=== PATIENT | male | born 1950 | race Hispanic/Latino ===

== ENCOUNTER 2017-02-15 13:34 | Day surgery (SDC) | payer BC ==
[~2017-02-15 13:34] MED LIST: NACL 0.9% 1000 ML 1,000 ML IV SCH; PEPCID PO NR
--- NOTE | 2017-02-15 14:17 | Anesthesia Consultation ---
Anesthesia Consult and Med Hx Date of service: 02/15/17 - Airway Anesthetic Teeth Evaluation: Good ROM Head & Neck: Adequate Mental/Hyoid Distance: Adequate Mallampati Class: Class II Intubation Access Assessment: Probably Good - Pulmonary Exam CTA: Yes - Cardiac Exam Cardiac Exam: RRR - Pre-Operative Health Status ASA Pre-Surgery Classification: ASA2 Proposed Anesthetic Plan: General - Pre-Anesthesia Comment Pre-Anesthesia Comments: Bilateral hearing aids. right nephrectomy. No anesthesia complications. - Pulmonary Hx Smoking: Yes (QUIT 1979) - Other Systems Hx Cancer: Yes (bladder )
--- NOTE | 2017-02-15 14:17 | Anesthesia Day of Surgery ---
Anesthesia Day of Surgery - Day of Surgery Patient Examined: Yes Patient H&P Reviewed: Yes Patient is NPO: Yes
[2017-02-15] MEDS ORDERED: VERSED IV NR (15:00)
[2017-02-15 15:03] LABS: Anion Gap 16 mmol/L; BUN/Creatinine Ratio 15.83; Blood Urea Nitrogen 19 mg/dL (9-20); Carbon Dioxide 22 mmol/L (22-30); Chloride 103.9 mmol/L (98-107); Glucose 90 mg/dL (75-100); Potassium 4.3 mmol/L (3.6-5.0); Sodium 138 mmol/L (137-145)
[2017-02-15] MEDS ORDERED: DIPRIVAN 10 MG/ML IV ONE (15:12)
[2017-02-15] MEDS ORDERED: ZOFRAN ONE ×2 (15:12→16:09)
[2017-02-15] MEDS ORDERED: XYLOCAINE MPF 2% ONE (15:12)
[2017-02-15] MEDS ORDERED: SUBLIMAZE ONE (15:12)
[2017-02-15] MEDS ORDERED: OMNIPAQUE 300 MG/50 ML (CATH LAB) IV ONE (15:58)
[2017-02-15] MEDS ORDERED: ANCEF ONE ×2 (16:06)
[2017-02-15] MEDS ORDERED: TORADOL ONE (16:24)
--- NOTE | 2017-02-15 16:33 | Short Stay Summary ---
Short Stay Documentation Date of service: 02/15/17 - History H&P: obtained from office - Allergies and Medications Current Medications: Allergies No Known Allergies Allergy (Verified 02/01/16 06:25) Home Medications Medication Instructions Recorded Confirmed Last Taken Type Lipitor 10 mg PO DAILY 08/25/14 02/15/17 02/14/17 History Multivitamin Tab [Multiple Vitamin 1 each PO QDAY 01/19/16 02/15/17 02/14/17 History TAB (Theragran)] Ibuprofen [Motrin] 800 mg PO Q8HR PRN 02/09/17 02/15/17 02/10/17 History Active Medications Famotidine (Pepcid) 20 mg PO PREOP NR Stop: 02/15/17 23:59 Last Admin: 02/15/17 14:15 Dose: 20 mg Sodium Chloride (Nacl 0.9% 1000 Ml) 1,000 mls @ 75 mls/hr IV DIRECT ANITA Last Admin: 02/15/17 14:20 Dose: 75 mls/hr Midazolam HCl (Versed) 2 mg IV PREOP NR Stop: 02/15/17 23:59 Last Admin: 02/15/17 14:42 Dose: 2 mg - Brief post op/procedure progress note Date of procedure: 02/15/17 Pre-op diagnosis: BLADDER TUMORS Post-op diagnosis: same Procedure: CYSTO, LEFT RPG, TURBT X 3 Anesthesia: GETA Surgeon: ISACC EDGAR Estimated blood loss: minimal Pathology: list (BLADDER TUMOR-DOME, POSTERIOR, RT SIDE WALL) - Hospital course Hospital course: PT HAS ABX & PAIN PILL AT HOME - Disposition Condition at discharge: Stable Disposition: DC-01 TO HOME OR SELFCARE Short Stay Discharge Plan Follow up with: CARO BRUMFIELD MD [Primary Care Provider] - 7 Days
--- NOTE | 2017-02-15 16:58 | Post Anesthesia Evaluation ---
- Post Anesthesia Evaluation Patient Participated: Yes Airway Patent: Yes Stable Respiratory Function: Yes Nausea/Vomiting: No Temp > 96.8F: Yes Pain Manageable: Yes Adequeate Hydration: Yes Anesthesia Complications: No
[2017-02-15] MEDS ORDERED: DILAUDID IV PRN (17:19)
--- NOTE | 2017-02-15 19:36 | Operative Report ---
PREOPERATIVE DIAGNOSIS: Multiple bladder tumors. POSTOPERATIVE DIAGNOSIS: Multiple bladder tumors (total aggregate approximately 2 cm of tumor.) PROCEDURE: Cystoscopy, left retrograde pyelogram, transurethral resection of bladder tumors (posterior dome, right lateral wall). SURGEON: Alejandro De La Garza MD ANESTHESIA: General. ESTIMATED BLOOD LOSS: Minimal. FLUIDS: Crystalloid. COMPLICATIONS: No complications. INDICATIONS: This patient is a 66-year-old gentleman seen by Dr. Wolf in the office for superficial bladder tumors, had a previous resection. Surveillance cystoscopy revealed 3 tumors. He presents now for resection. Risks, benefits, and complications were explained. DESCRIPTION OF PROCEDURE: The patient was taken to the operative suite, placed in a supine position. After adequate general anesthesia, placed in a dorsal lithotomy position, prepped and draped in a sterile fashion. Pancystourethroscopy was performed with a 22 Danish Storz cystoscope, normal urethra and prostate. Bladder, no stones were noted, 3 papillary tumors could be appreciated. Left retrograde pyelogram was obtained with an 8 Danish Florence catheter and 8 mL of contrast. No filling defects or obstruction. I could not visualize the right side it had some mild trabeculation. Originally cold cup biopsy forceps was used to remove the dome tumor little smaller of the 3. However, the posterior wall, lateral wall was resected with a 24-Danish resectoscope with a cutting and coagulant at 160 and 60. Adequate hemostasis was achieved. This tumors were sent for routine pathologic evaluation. His bladder was drained. Rectal exam was benign. He was extubated and taken to recovery room in stable condition. JOB# [id number] [facility]
[2017-02-16 00:02] VITALS: BP 135/79
--- NOTE | 2017-02-16 08:56 | Fluoroscopy Report ---
FLUOROSCOPY RETROGRADE UROGRAPHY History: Bladder tumors. Findings: Fluoroscopy was provided by radiology during retrograde urography by Dr. De La Garza of urology. 4 fluoroscopic images were captured. Compared to 05/04/16 exam. Only the left pyelogram was performed which remains normal. The orifice to the right ureter could not be identified per the operative notes. Bladder TURP was performed with biopsies. Please correlate with the operative report. Impression: Normal left pyelogram.
== END 2017-02-15 19:15 | disposition home or self-care (01) ==
LOC: OR 13:34
PROVIDERS: ATTEND Urology
DX: C67.1 Malignant neoplasm of dome of bladder (principal); C67.2 Malignant neoplasm of lateral wall of bladder; C67.4 Malignant neoplasm of posterior wall of bladder; N32.89 Other specified disorders of bladder; Z90.5 Acquired absence of kidney; Z87.891 Personal history of nicotine dependence; Z98.890 Other specified postprocedural states
CPT/HCPCS: 36415; 52234; 74420; 80048; 88305; J0690; J1170; J1885; J2250; J2405; J2704; J3010; J7030; Q9967

== ENCOUNTER 2017-06-09 09:27 | Day surgery (SDC) | payer BC ==
[2017-06-09] MEDS ORDERED: NACL BACTERIOSTATIC INFILTRATI ONE (10:06)
[2017-06-09] MEDS ORDERED: NEO SYNEPHRINE/NS Syringe(OR USE) IV ONE (11:00)
[2017-06-09] MEDS ORDERED: LASIX ONE (11:00)
[2017-06-09] MEDS ORDERED: SUBLIMAZE ONE (11:07)
[2017-06-09] MEDS ORDERED: DIPRIVAN 10 MG/ML IV ONE (11:07)
[2017-06-09] MEDS ORDERED: ROBINUL ONE (11:08)
[2017-06-09] MEDS ORDERED: ZOFRAN ONE (11:08)
[2017-06-09] MEDS ORDERED: XYLOCAINE MPF 2% ONE (11:08)
[2017-06-09] MEDS ORDERED: DECADRON ONE (11:08)
--- NOTE | 2017-06-09 11:23 | Anesthesia Consultation ---
Anesthesia Consult and Med Hx Date of service: 06/09/17 - Airway Anesthetic Teeth Evaluation: Good ROM Head & Neck: Adequate Mental/Hyoid Distance: Inadequate Mallampati Class: Class II Intubation Access Assessment: Probably Good - Pulmonary Exam CTA: Yes - Cardiac Exam Cardiac Exam: RRR - Pre-Operative Health Status ASA Pre-Surgery Classification: ASA2 Proposed Anesthetic Plan: General - Pulmonary Hx Smoking: Yes (QUIT 1979- SMOKED X 5 YRS) Hx Sleep Apnea: No (NICOLÁS PRE SCREEN HIGH RISK) - Cardiovascular System Hx Hypertension: No - Central Nervous System Hx Neuromuscular Disorder: No Hx Back Pain: Yes (cervical and lumbar fusion, h/o ruptured disc) Hx Psychiatric Problems: No - Gastrointestinal Hx Gastroesophageal Reflux Disease: No - Endocrine Hx Renal Disease: No Hx Insulin Dependent Diabetes: No - Hematic Hx Anemia: No Hx Sickle Cell Disease: No - Other Systems Hx Alcohol Use: No Hx Substance Use: No Hx Cancer: Yes (bladder ) Hx Obesity: No
--- NOTE | 2017-06-09 11:23 | Anesthesia Day of Surgery ---
Anesthesia Day of Surgery - Day of Surgery Patient Examined: Yes Patient H&P Reviewed: Yes Patient is NPO: Yes
[2017-06-09] MEDS ORDERED: LACTATED RINGERS 1,000 ML IV SCH (11:25)
[2017-06-09] MEDS ORDERED: VERSED IV NR (11:25)
[2017-06-09] MEDS ORDERED: PEPCID PO NR (11:25)
[2017-06-09] MEDS ORDERED: OMNIPAQUE 300 MG/50 ML (CATH LAB) IV ONE (11:54)
[2017-06-09] MEDS ORDERED: WATER FOR IRRIG STERILE IR ONE ×2 (11:55)
[2017-06-09] MEDS ORDERED: ANCEF/STERILE WATER 2 GM/20 ML 2 GM/20 ML SYRINGE IV NR (12:00)
[2017-06-09] MEDS ORDERED: ePHEDrine SULFATE ONE (12:01)
[2017-06-09] MEDS ORDERED: METHYLENE BLUE ONE (12:13)
[2017-06-09] MEDS ORDERED: METHYLENE BLUE IV ONE (12:26)
[2017-06-09] MEDS: MORPHINE IV PRN ×2 (12:58→13:20)
[2017-06-09] MEDS ORDERED: NORCO 5/325 ONE (13:12)
[2017-06-09] MEDS ORDERED: NORCO 5/325 PO ONE (13:17)
--- NOTE | 2017-06-09 14:37 | Post Operative Note ---
Date of procedure: 06/09/17 Pre-op diagnosis: bladder casncer Post-op diagnosis: same Findings: min erytheme Procedure: cysto biopsies rpg L Anesthesia: GETA Surgeon: RADHA POZO Estimated blood loss: none Pathology: list (bladder yrethra) Specimen disposition: to lab Condition: stable Disposition: PACU
--- NOTE | 2017-06-09 14:39 | Discharge Summary ---
Short Stay Discharge Plan Activity: other (no straining ) Weight Bearing Status: Full Weight Bearing Diet: low fat, low cholesterol, low salt Special Instructions: other (inc fluids ) Durable Medical Equipment Needed Upon Discharge: other (remove del real ) Additional Instructions: INCREASE ORAL FLUIDS. Follow up with: CARO BRUMFIELD MD [Primary Care Provider] - 7 Days RADHA POZO MD [Staff Physician] - 14 Days Forms: Outpatient Surgery DC Inst.
[2017-06-09 14:40] VITALS: BP 147/95
--- NOTE | 2017-06-09 18:36 | Operative Report ---
PREOPERATIVE DIAGNOSES: History of bladder cancer, ureteral cancer. POSTOPERATIVE DIAGNOSES: History of bladder cancer, ureteral cancer. PROCEDURE: Cystoscopy, bladder biopsy, fulguration, and left retrograde. SURGEON: Jackson Wolf MD, ANESTHESIA: General. FINDINGS: This is a gentleman with right nephroureterectomy for a followup post-resection of bladder tumors, now presents for treatment. DESCRIPTION OF PROCEDURE: The patient brought to the operating room and placed on the operating table. Following induction of anesthesia, placed in lithotomy position, prepped and draped in usual sterile fashion. Cystourethroscopy showed old scars where the right orifice was. The left retrograde was unremarkable with good drainage, little narrowing by the bifurcation. Biopsies were done. Area was cauterized. The patient tolerated the procedure well. Prostatic urethra was biopsied. He has trilobar hypertrophy. The patient tolerated the procedure well. No significant complications, brought to recovery room in stable condition. JOB# [id number] [facility]
--- NOTE | 2017-06-12 07:27 | Fluoroscopy Report ---
FLUORO RETROGRADE UROGRAPHY INDICATION: Bladder cancer. Absent right kidney. COMPARISON: None similar. FINDINGS: Left retrograde urography performed by Dr. Wolf utilizing 6 mL of Omnipaque 300. Left retrograde pyelogram and biopsies of posterior and lateral bladder wall and prostatic urethra were performed. A total of 6 images submitted. Initial store operations specialist views demonstrate L3-L5 bilateral pedicle screws and fusion hardware, disc maintainers and bone grafting. Moderate L2-L3 degenerative disc narrowing and spurring also seen. Subsequent retrograde opacification of the left ureter and intrarenal collecting system noted. Approximately 1 cm long segment narrowing of the left distal ureter overlying the sacrum inferiorly on a single view nonspecific, presumed peristaltic rather than pathologic without evidence of hydronephrosis or any residual contrast on drainage images. Right retrograde pyelogram not performed due to absent right kidney. CONCLUSION: Intraoperative fluoroscopic assistance provided, as described. Please also correlate with procedural notes. Thank you for the opportunity to participate in this patient's care.
== END 2017-06-09 09:28 | disposition home or self-care (01) ==
LOC: OR 09:27
PROVIDERS: ATTEND Urology
DX: N30.80 Other cystitis without hematuria (principal); N32.89 Other specified disorders of bladder; Z85.51 Personal history of malignant neoplasm of bladder
CPT/HCPCS: 52204; 74420; 88305; A4217; C1758; J0690; J1100; J1940; J2250; J2270; J2370; J2405; J2704; J3010; J7120; Q9967; Q9968

== ENCOUNTER 2018-03-14 13:36 | Day surgery (SDC) | payer MEDICARE ==
[~2018-03-14 13:36] MED LIST changes: +DILAUDID IV PRN; -PEPCID PO NR; +VERSED IV NR; +ZOFRAN IV PRN
[2018-03-14 14:13] VITALS: BP 147/89
[2018-03-14] MEDS ORDERED: ANCEF/STERILE WATER 2 GM/20 ML 2 GM/20 ML SYRINGE IV NR (15:00)
--- NOTE | 2018-03-14 15:00 | Anesthesia Day of Surgery ---
Anesthesia Day of Surgery - Day of Surgery Patient Examined: Yes Patient H&P Reviewed: Yes Patient is NPO: Yes
--- NOTE | 2018-03-14 15:01 | Anesthesia Consultation ---
Anesthesia Consult and Med Hx Date of service: 03/14/18 - Airway Anesthetic Teeth Evaluation: Good ROM Head & Neck: Adequate Mental/Hyoid Distance: Adequate Mallampati Class: Class III Intubation Access Assessment: Possibly Difficult - Pulmonary Exam CTA: Yes - Cardiac Exam Cardiac Exam: RRR - Pre-Operative Health Status ASA Pre-Surgery Classification: ASA3 Proposed Anesthetic Plan: General (obesity, denies GERD, LMA ok) - Pulmonary Hx Smoking: Yes (QUIT 1979- SMOKED X 5 YRS) Hx Sleep Apnea: No (NICOLÁS PRE SCREEN HIGH RISK) - Cardiovascular System Hx Hypertension: No - Central Nervous System Hx Neuromuscular Disorder: No Hx Back Pain: Yes (NECK AND BACK PAIN ( FUSION)) Hx Psychiatric Problems: No - Gastrointestinal Hx Gastroesophageal Reflux Disease: No - Endocrine Hx Renal Disease: No Hx Insulin Dependent Diabetes: No - Hematic Hx Anemia: No Hx Sickle Cell Disease: No - Other Systems Hx Alcohol Use: No Hx Substance Use: No Hx Cancer: Yes (bladder ) Hx Obesity: No
[2018-03-14] MEDS ORDERED: SUBLIMAZE IV ONE (15:45)
[2018-03-14] MEDS ORDERED: AMBIEN PO PRN (17:32)
[2018-03-14] MEDS ORDERED: PERCOCET 5/325 PO PRN (17:32)
[2018-03-14] MEDS ORDERED: ZOFRAN ODT PO PRN (17:32)
[2018-03-14] MEDS ORDERED: TYLENOL PO PRN (17:32)
--- NOTE | 2018-03-14 17:32 | Post Operative Note ---
Date of procedure: 03/14/18 Pre-op diagnosis: bladder cancer Post-op diagnosis: same Findings: tumor at orifice Procedure: cysto turbt Anesthesia: GETA Surgeon: RADHA POZO Estimated blood loss: minimal Pathology: list (bt) Specimen disposition: to lab Condition: stable Disposition: PACU
[2018-03-14] MEDS ORDERED: DIPRIVAN 10 MG/ML IV ONE (17:39)
[2018-03-14] MEDS ORDERED: XYLOCAINE MPF 2% ONE (17:39)
[2018-03-14] MEDS ORDERED: D5W/0.45% NACL/KCL 20 MEQ 20 MEQ/1,000 ML BAG IV SCH (20:00)
[2018-03-14] MEDS ORDERED: ANCEF/NS 1 GM/50 ML 1 GM/50 ML BAG IV SCH (22:00)
[2018-03-14] MEDS ORDERED: COLACE PO SCH (22:00)
--- NOTE | 2018-03-15 07:24 | Post Anesthesia Evaluation ---
- Post Anesthesia Evaluation Patient Participated: Yes Airway Patent: Yes Stable Respiratory Function: Yes Nausea/Vomiting: No Temp > 96.8F: Yes Pain Manageable: Yes Adequeate Hydration: Yes Anesthesia Complications: No Block Receding Appropriately: Not Applicable Patient on Ventilator: No
== END 2018-03-14 19:20 | disposition home or self-care (01) ==
LOC: OR 13:36
PROVIDERS: ATTEND Urology
DX: C67.4 Malignant neoplasm of posterior wall of bladder (principal); E78.00 Pure hypercholesterolemia, unspecified; M19.90 Unspecified osteoarthritis, unspecified site; Z79.899 Other long term (current) drug therapy; Z90.5 Acquired absence of kidney; Z87.891 Personal history of nicotine dependence; Z92.21 Personal history of antineoplastic chemotherapy; Z98.890 Other specified postprocedural states; Z53.8 Procedure and treatment not carried out for other reasons
CPT/HCPCS: J0690; J2250; J2704; J3010; J7030

== ENCOUNTER 2018-07-16 08:01 | Day surgery (SDC) | payer MEDICARE ==
[2018-07-16] MEDS ORDERED: LACTATED RINGERS 1,000 ML ONE (08:37)
--- NOTE | 2018-07-16 08:41 | Anesthesia Day of Surgery ---
Anesthesia Day of Surgery - Day of Surgery Patient Examined: Yes Patient H&P Reviewed: Yes Patient is NPO: Yes
--- NOTE | 2018-07-16 08:43 | Anesthesia Consultation ---
Anesthesia Consult and Med Hx Date of service: 07/16/18 - Airway Anesthetic Teeth Evaluation: Good ROM Head & Neck: Adequate Mental/Hyoid Distance: Adequate Mallampati Class: Class I Intubation Access Assessment: Good - Pre-Operative Health Status ASA Pre-Surgery Classification: ASA2 Proposed Anesthetic Plan: General - Pulmonary Hx Smoking: Yes (QUIT 1979- SMOKED X 5 YRS) Hx Asthma: No Hx Respiratory Symptoms: No COPD: No Hx Sleep Apnea: No (NICOLÁS PRE SCREEN HIGH RISK) - Cardiovascular System Hx Hypertension: No Hx Heart Attack/AMI: No - Central Nervous System Hx Neuromuscular Disorder: No Hx Seizures: No CVA: No Hx Back Pain: Yes (NECK AND BACK PAIN ( FUSION)) Hx Psychiatric Problems: No - Gastrointestinal Hx Gastroesophageal Reflux Disease: No - Endocrine Hx Renal Disease: Yes (One kidney-nephrectomy; hx bladder ca) Hx Insulin Dependent Diabetes: No Hx Thyroid Disease: No - Hematic Hx Anemia: No Hx Sickle Cell Disease: No - Other Systems Hx Alcohol Use: No Hx Substance Use: No Hx Cancer: Yes (bladder ) Hx Obesity: Yes
[2018-07-16] MEDS ORDERED: ANCEF/STERILE WATER 2 GM/20 ML IV NR (09:00)
[2018-07-16] MEDS ORDERED: VERSED IV NR (09:30)
[2018-07-16] MEDS ORDERED: LACTATED RINGERS 1,000 ML IV SCH (09:30)
[2018-07-16] MEDS ORDERED: XYLOCAINE MPF 2% ONE (09:57)
[2018-07-16] MEDS ORDERED: ZOFRAN ONE (09:57)
[2018-07-16] MEDS ORDERED: SUBLIMAZE ONE (09:58)
[2018-07-16] MEDS ORDERED: DIPRIVAN 10 MG/ML IV ONE (09:59)
[2018-07-16] MEDS ORDERED: WATER FOR IRRIG STERILE IR ONE ×2 (10:59→11:00)
--- NOTE | 2018-07-16 11:04 | Post Operative Note ---
Date of procedure: 07/16/18 Pre-op diagnosis: TCC Post-op diagnosis: same Findings: post r neph Procedure: cysto ureteroscoppy bx Anesthesia: GETA Surgeon: RADHA POZO Pathology: list (bladder prost) Specimen disposition: to lab Condition: stable Disposition: PACU
--- NOTE | 2018-07-16 11:05 | Discharge Summary ---
Short Stay Discharge Plan Activity: other (no straining ) Weight Bearing Status: Full Weight Bearing Diet: low fat, low cholesterol, low salt Follow up with: CARO BRUMFIELD MD [Primary Care Provider] - 7 Days RADHA POZO MD [Staff Physician] - 7 Days
--- NOTE | 2018-07-16 11:32 | Operative Report ---
PREOPERATIVE DIAGNOSES: History of bladder cancer, history of transitional cell cancer. POSTOPERATIVE DIAGNOSES: History of bladder cancer, history of transitional cell cancer. PROCEDURE: Cystoscopy, urine for cytology, left retrograde, multiple blood bladder biopsies, left ureteroscopy. SURGEON: Jackson Wolf MD ANESTHESIA: General. FINDINGS: This is a gentleman with history of bladder cancer and right renal cancer, transitional cell, now presents for followup after an intravesical therapy. DESCRIPTION OF PROCEDURE: The patient was brought to the operating room and placed on the operating table. Following induction of anesthesia, placed in lithotomy position, prepped and draped in usual sterile fashion. Cystoscopy showed some mild trilobar hypertrophy. Prostatic urethral biopsy was obtained. Posterior wall biopsies and lateral wall biopsies and surrounding left orifice biopsies were obtained without difficulty. There were no papillary lesions, no suspicious areas. The left orifice retrograde showed good filling with some narrowing at the vessels, but no persistent filling defects. Excellent drainage. Using a wire through a rigid ureteroscope, the wire went up to the kidney and lower ureteroscopy showed perfectly normal ureter. The patient tolerated the procedure well, no complications. There were no lesions noted. He was brought to the recovery room in stable condition. JOB# [id number] [facility]
[2018-07-16 11:50] VITALS: BP 131/69
--- NOTE | 2018-07-17 08:09 | Fluoroscopy Report ---
FLUOROSCOPY RETROGRADE UROGRAPHY: HISTORY: Bladder cancer. FINDINGS: Fluoroscopy was provided by radiology during retrograde urography by the urologist. 4 fluoroscopic images were captured. There is adequate filling of the left ureter and intrarenal collecting system with no filling defects or anatomic abnormalities identified. The right pyelogram was not performed. Please correlate with the procedural report if needed. IMPRESSION: Normal left retrograde pyelogram.
== END 2018-07-16 08:02 | disposition home or self-care (01) ==
LOC: OR 08:01
PROVIDERS: ATTEND Urology
DX: C67.9 Malignant neoplasm of bladder, unspecified (principal); C64.1 Malignant neoplasm of right kidney, except renal pelvis; N40.0 Benign prostatic hyperplasia without lower urinary tract symptoms; E78.00 Pure hypercholesterolemia, unspecified; E66.9 Obesity, unspecified; M19.90 Unspecified osteoarthritis, unspecified site; Z98.890 Other specified postprocedural states; Z79.899 Other long term (current) drug therapy; Z87.891 Personal history of nicotine dependence; Z90.5 Acquired absence of kidney
CPT/HCPCS: 52204; 52351; 74420; 88112; 88305; A4217; C1758; C1769; J0690; J2250; J2405; J2704; J3010; J7120; Q9967

== ENCOUNTER → 2020-06-01 | Day surgery (SDC) | payer MEDICARE ==
[~2020-06-01] MED LIST changes: +ACETAMINOPHEN W/CODEINE 300-30 MG TAB ONE; +ACETAMINOPHEN W/CODEINE 300-30 MG TAB PO PRN; +BACTERIOSTATIC SODIUM CHLORIDE 0.9% 30 ML VIAL INFILTRATI ONE; -DILAUDID IV PRN; +HYDROmorphone 1 MG/1 ML INJ IV PRN; +IOHEXOL 240 MG/ML 100 ML IV ONE; +LACTATED RINGERS 1,000 ML IV SCH; -NACL 0.9% 1000 ML 1,000 ML IV SCH; +ONDANSETRON 4 MG/2 ML INJ IV PRN; +ONDANSETRON 4 MG/2 ML INJ ONE; +SODIUM CHLORIDE 0.9% 1000 ML IV SOLN IR ONE; +VERAPAMIL 5 MG/2 ML INJ IV ONE; +VERAPAMIL 5 MG/2 ML INJ ONE; -VERSED IV NR; -ZOFRAN IV PRN; +ceFAZolin/STERILE WATER 2 GM/20 ML SYRINGE IV NR; +ePHEDrine SULFATE 50 MG/1 ML INJ ONE; +fentaNYL 100 MCG/2 ML INJ ONE; +propofoL 200 MG/20 ML VIAL IV ONE
--- NOTE | 2020-06-01 08:43 | Anesthesia Day of Surgery ---
Anesthesia Day of Surgery - Day of Surgery Patient Examined: Yes Patient H&P Reviewed: Yes Patient is NPO: Yes
--- NOTE | 2020-06-01 08:44 | Anesthesia Consultation ---
Anesthesia Consult and Med Hx Date of service: 06/01/20 - Airway Anesthetic Teeth Evaluation: Good ROM Head & Neck: Adequate (S/P ACDF) Mental/Hyoid Distance: Adequate Mallampati Class: Class II Intubation Access Assessment: Good - Pre-Operative Health Status ASA Pre-Surgery Classification: ASA3 Proposed Anesthetic Plan: General - Pulmonary Hx Smoking: Yes (QUIT 1979) Hx Asthma: No Hx Respiratory Symptoms: No (+2FS) COPD: No Hx Sleep Apnea: No (NICOLÁS PRE SCREEN HIGH RISK) - Cardiovascular System Hx Hypertension: No Hx Heart Attack/AMI: No Hx Pacemaker: No Hx Internal Defibrillator: No Hx Heart Murmur: No - Central Nervous System Hx Neuromuscular Disorder: No Hx Seizures: No 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 BEER) Hx Substance Use: No Hx Cancer: Yes Hx Obesity: No
--- NOTE | 2020-06-01 10:48 | Post Operative Note ---
Date of procedure: 06/01/20 Pre-op diagnosis: bladder cancer Post-op diagnosis: same Findings: post R neph u Procedure: cysto bx pg Anesthesia: GETA Surgeon: RADHA POZO Estimated blood loss: none Pathology: list (bladder) Specimen disposition: to lab Condition: stable Disposition: PACU
--- NOTE | 2020-06-01 10:49 | Discharge Summary ---
Short Stay Discharge Plan Activity: other (straining ) Weight Bearing Status: Full Weight Bearing Diet: low fat, low cholesterol, low salt Special Instructions: other (home with cath x 2 d ) Follow up with: CARO BRUMFIELD MD [Primary Care Provider] - 7 Days RADHA POZO MD [Staff Physician] - 3 Days
--- NOTE | 2020-06-01 11:18 | Operative Report ---
PREOPERATIVE DIAGNOSES: History of bladder cancer, positive cytology, atypical and evidence of cancer cells, previous nephroureterectomy. POSTOPERATIVE DIAGNOSES: History of bladder cancer, positive cytology, atypical and evidence of cancer cells, previous nephroureterectomy. PROCEDURE: Cystoscopy, biopsies, fulguration. SURGEON: Jackson Wolf MD. ANESTHESIA: General. FINDINGS: This is a gentleman with history of bladder cancer and ureteral cancer. He now presents for treatment. DESCRIPTION OF PROCEDURE: The patient was brought to the operating room and placed on the operating room table. Following induction of anesthesia, placed in lithotomy position, prepped and draped in the usual sterile fashion. Cystourethroscopy showed no lesions. Trabeculated bladder, 2+ with a prominent prostate. There was a patulous left orifice. Retrograde showed the same narrowing with very smooth lining. This was looked visually over the last year. It drained well. There was no hydronephrosis, no persistent filling defect in intraluminal. Biopsies were obtained multiple and prostatic urethral biopsies were obtained. The patient tolerated the procedure well. A 20-Cuban coude catheter was inserted. There was no significant bleeding. The patient tolerated the procedure well and brought to recovery in stable condition. JOB# [id number] [facility]
--- NOTE | 2020-06-01 11:31 | Fluoroscopy Report ---
INTRAOPERATIVE FLUOROSCOPY: ABDOMEN INDICATION: GROSS HEMATURIA. TECHNIQUE: Intraoperative spot images were obtained during the procedure. FINDINGS: There is persistent narrowing of the distal third of the left ureter without other significant abnorm alities clearly seen upon the opacified portions of the left ureter and renal collecting system. Plea se see the operative report for further details. Fluoroscopy Time: 0.3 minutes. Fluoroscopy Images: 5. Signer Name: Jericho Arthur MD Signed: 06/01/2020 11:27 AM Workstation Name: [id number]
[2020-06-01 13:35] VITALS: BP 137/80
== END | disposition home or self-care (01) ==
LOC: OR 08:27
PROVIDERS: ATTEND Urology
DX: R82.998 Other abnormal findings in urine (principal); Z20.828 Contact with and (suspected) exposure to other viral communicable diseases; R31.0 Gross hematuria; E78.00 Pure hypercholesterolemia, unspecified; M19.90 Unspecified osteoarthritis, unspecified site; Z90.5 Acquired absence of kidney; Z85.51 Personal history of malignant neoplasm of bladder; Z87.891 Personal history of nicotine dependence; Z79.899 Other long term (current) drug therapy; Z79.82 Long term (current) use of aspirin; Z72.89 Other problems related to lifestyle; Z98.890 Other specified postprocedural states; Z86.73 Personal history of transient ischemic attack (TIA), and cerebral infarction without residual deficits
CPT/HCPCS: 52204; 74420; 88305; C1758; J2405; J2704; J3010; J7030; J7120; Q9967; U0003